=== PATIENT | male | born 2005 | race Caucasian/White ===

== ENCOUNTER 2024-01-07 15:38 | Emergency (ER) | payer MEDICAID, OTHER ==
[~2024-01-07] VITALS: Ht 162.6 cm; Wt 83.2 kg
[2024-01-07 17:11] LABS: BASO # 0.1 10^3/uL (0.0-0.2); BASO % 1.3 % (0.0-1.0); EOS # 0.4 10^3/uL (0.0-0.5); EOS % 5.6 % (0.0-3.0); HEMATOCRIT 45.6 % (42.0-52.0); HEMOGLOBIN 14.8 g/dl (13.5-17.5); LYMPH # 1.7 10^3/uL (1.5-5.0); LYMPH % 21.1 % (24.0-44.0); MEAN CORPUSCULAR HEMOGLOBIN 25.9 pg (27.0-33.0); MEAN CORPUSCULAR HGB CONC 32.5 g/dl (32.0-36.5); MEAN CORPUSCULAR VOLUME 79.9 fl (80.0-96.0); MONO # 0.6 10^3/uL (0.0-0.8); MONO % 7.1 % (2.0-8.0); NEUTROPHILS # 5.1 10^3/uL (1.5-8.5); NEUTROPHILS % 64.4 % (36.0-66.0); PLATELET COUNT, AUTOMATED 335 10^3/uL (150-450); RED BLOOD COUNT 5.71 10^6/uL (4.30-6.10); WHITE BLOOD COUNT 7.9 10^3/uL (4.0-10.0)
[2024-01-07] MEDS: KETOROLAC 30 MG/ML 1ML VIAL IV ONE (17:18)
[2024-01-07 17:22] LABS: LIPASE 26 U/L (12-53)
[2024-01-07 17:24] LABS: ALKALINE PHOSPHATASE 77 U/L (46-116); ALT/SGPT 39 U/L (7.0-40); AST/SGOT 27 U/L (<34); BILIRUBIN,DIRECT < 0.1 MG/DL (<0.4); BILIRUBIN,TOTAL 0.2 MG/DL (0.3-1.2); TOTAL PROTEIN 7.2 G/DL (5.7-8.2)
[2024-01-07] MEDS ORDERED: ISOVUE-370 76% 100ML VIAL As Ordered ONE (17:28)
[2024-01-07 21:08] VITALS: BP 163/84; TEMP 98.7; O2SAT 98
== END 2024-01-07 21:12 | disposition home or self-care (01) ==
LOC: M ED 15:38
DX: R10.9 Unspecified abdominal pain (principal); N28.0 Ischemia and infarction of kidney
CPT/HCPCS: 74177; 80047; 80076; 81001; 83690; 85025; 93005; 96374; 99284; J1885; Q9967

== ENCOUNTER 2024-01-08 13:10 | Emergency (ER) | payer MEDICAID, SELFPAY ==
[~2024-01-08] VITALS: Ht 160 cm; Wt 83.2 kg
[2024-01-08] MEDS: BOOSTRIX VACCINE (TETANUS/DIPHTH/ACEL. PERTUSSIS) 0.5ML SYR IM.IMMUN ONE (13:55)
[2024-01-08] MEDS: LIDOCAINE 1% MDV 20ML VIAL SC ONE (13:56)
[2024-01-08 14:42] VITALS: BP 162/85; TEMP 98; O2SAT 99
== END 2024-01-08 14:43 | disposition home or self-care (01) ==
LOC: M ED 13:10
DX: S61.411A Laceration without foreign body of right hand, initial encounter (principal); W26.0XXA Contact with knife, initial encounter; Y92.009 Unspecified place in unspecified non-institutional (private) residence as the place of occurrence of the external cause; Y93.89 Activity, other specified; Y99.9 Unspecified external cause status

== ENCOUNTER 2024-01-18 15:09 | Emergency (ER) | payer SELFPAY ==
[~2024-01-18] VITALS: Ht 162.6 cm; Wt 84.4 kg
[2024-01-18 15:09] VITALS: BP 142/88; TEMP 97.6; O2SAT 98
== END 2024-01-18 17:15 | disposition left against medical advice (07) ==
LOC: M ED 15:09
DX: Z53.21 Procedure and treatment not carried out due to patient leaving prior to being seen by health care provider (principal)